=== PATIENT | female | born 1970 | race Caucasian/White ===

== ENCOUNTER 2017-07-17 21:15 | Inpatient (IN) | payer MEDICAID, OTHER ==
[~2017-07-17] VITALS: Ht 162.6 cm; Wt 68.0 kg
[2017-07-17] MEDS ORDERED: ONDANSETRON 2MG/ML, 2ML IVPush ONE (22:00)
[2017-07-17] MEDS ORDERED: SODIUM CHLORIDE 0.9% 1,000ML IVBOLUS ONE (22:00)
[2017-07-17 22:04] LABS: BASOPHILS # (AUTO) 0.05 x10^3/uL (0-0.1); BASOPHILS % (AUTO) 0 % (0-1); EOSINOPHILS # (AUTO) 0.25 x10^3/uL (0-0.4); EOSINOPHILS % (AUTO) 2 % (1-7); LYMPHOCYTES # (AUTO) 1.33 x10^3/uL (1-3.4); LYMPHOCYTES % (AUTO) 11 % (22-44); MD NO; MEAN CORPUSCULAR HEMOGLOBIN 29.9 pg (27.0-34.8); MEAN CORPUSCULAR HGB CONC 33.8 g/dL (32.4-35.8); MEAN CORPUSCULAR VOLUME 88.4 fL (80-100); MEAN PLATELET VOLUME 9.4 fL (7.4-10.4); MONOCYTES # (AUTO) 0.68 x10^3/uL (0.2-0.8); MONOCYTES % (AUTO) 6 % (2-9); NEUTROPHILS # (AUTO) 9.64 x10^3/uL (1.8-6.8); NEUTROPHILS % (AUTO) 81 % (42-75); PLATELET COUNT 181 x10^3/uL (130-400); RED BLOOD COUNT 4.57 x10^6/uL (3.82-5.3); RED CELL DISTRIBUTION WIDTH 13.1 % (9.6-15.2)
[2017-07-17] MEDS ORDERED: MORPHINE SULFATE 4 MG/ML, 1ML ONE ×2 (22:13→22:42)
[2017-07-17] MEDS ORDERED: ONDANSETRON 2MG/ML, 2ML ONE (22:13)
[2017-07-17] MEDS: MORPHINE SULFATE 4 MG/ML, 1ML IVPush PRN ×2 (22:14→22:43)
[2017-07-17 22:18] LABS: ALANINE AMINOTRANSFERASE 13 U/L (12-78); ALBUMIN 3.7 g/dL (3.4-5.0); ANION GAP 6 mmol/L (5-15); CHLORIDE 106 mmol/L (98-107); CREATININE 1.38 mg/dL (0.55-1.02)
[2017-07-17 22:22] LABS: ALKALINE PHOSPHATASE 76 U/L (45-117); BILIRUBIN,TOTAL 0.5 mg/dL (0.2-1.0); TOTAL PROTEIN 7.2 g/dL (6.4-8.2)
[2017-07-17] MEDS ORDERED: OMNIPAQUE 350 MG/ML, 100ML BOTTLE ONE (23:02)
[2017-07-17] MEDS ORDERED: SODIUM CHLORIDE 0.9% 1,000 ML IV ONE (23:48)
[2017-07-18] MEDS ORDERED: ONDANSETRON 2MG/ML, 2ML ONE (00:01)
[2017-07-18] MEDS ORDERED: HYDROmorphone 2 MG/ML, 1ML ONE ×4 (00:01→15:39)
[2017-07-18] MEDS: HYDROmorphone 1 MG/ML, 1ML IVPush PRN ×4 (00:10→15:41)
[2017-07-18] MEDS ORDERED: CIPROFLOXACIN/PMX 400MG/200ML 200 ML ONE ×2 (00:18→12:42)
[2017-07-18] MEDS: CIPROFLOXACIN/PMX 400MG/200ML 200 ML IV SCH ×2 (00:23→12:47)
[2017-07-18] MEDS ORDERED: morphine SULFATE 10 MG/ML, 1ML IVPush PRN (00:30)
[2017-07-18] MEDS ORDERED: ONDANSETRON 2MG/ML, 2ML IVPush PRN ×2 (00:30)
[2017-07-18] MEDS ORDERED: ACETAMINOPHEN 325 MG TABLET PO PRN (00:30)
[2017-07-18] MEDS ORDERED: METRONIDAZOLE PMX 500MG/100ML 100 ML ONE ×2 (02:25→10:48)
[2017-07-18] MEDS: METRONIDAZOLE PMX 500MG/100ML 100 ML IV SCH ×2 (02:29→11:04)
[2017-07-18 02:30] LABS: MICROSCOPIC NOT IND
[2017-07-18 02:34] LABS: CULTURE INDICATED? NO
[2017-07-18] MEDS ORDERED: SODIUM CHLORIDE 0.9% 1,000ML IVBOLUS ONE ×2 (03:00→03:30)
[2017-07-18] MEDS: SODIUM CHLORIDE 0.9% 1,000 ML IV SCH ×2 (04:18→17:02)
[2017-07-18 04:47] LABS: BASOPHILS # (AUTO) 0.02 x10^3/uL (0-0.1); BASOPHILS % (AUTO) 0 % (0-1); EOSINOPHILS # (AUTO) 0.14 x10^3/uL (0-0.4); EOSINOPHILS % (AUTO) 2 % (1-7); LYMPHOCYTES # (AUTO) 1.52 x10^3/uL (1-3.4); LYMPHOCYTES % (AUTO) 23 % (22-44); MD NO; MEAN CORPUSCULAR HGB CONC 33.3 g/dL (32.4-35.8); MEAN CORPUSCULAR VOLUME 90.2 fL (80-100); MEAN PLATELET VOLUME 9.2 fL (7.4-10.4); MONOCYTES # (AUTO) 0.37 x10^3/uL (0.2-0.8); MONOCYTES % (AUTO) 6 % (2-9); NEUTROPHILS # (AUTO) 4.63 x10^3/uL (1.8-6.8); NEUTROPHILS % (AUTO) 69 % (42-75); PLATELET COUNT 120 x10^3/uL (130-400); RED BLOOD COUNT 3.32 x10^6/uL (3.82-5.3); RED CELL DISTRIBUTION WIDTH 13.2 % (9.6-15.2)
[2017-07-18 04:54] LABS: CHLORIDE 116 mmol/L (98-107)
[2017-07-18 05:04] LABS: ALANINE AMINOTRANSFERASE 10 U/L (12-78); ALBUMIN 2.5 g/dL (3.4-5.0); ALKALINE PHOSPHATASE 49 U/L (45-117); ANION GAP 5 mmol/L (5-15); BILIRUBIN,TOTAL 0.5 mg/dL (0.2-1.0); TOTAL PROTEIN 4.9 g/dL (6.4-8.2)
[2017-07-18] MEDS ORDERED: GABA100C PO (06:42)
[2017-07-18] MEDS ORDERED: SERT100T PO (06:42)
[2017-07-18] MEDS ORDERED: TRAZ100T15 PO (06:42)
[2017-07-18] MEDS ORDERED: ESTR0.5T PO (07:50)
[2017-07-18] MEDS ORDERED: GABAPENTIN 100 MG CAPSULE PO SCH ×2 (09:00→21:00)
[2017-07-18] MEDS ORDERED: SERTRALINE 100MG TABLET PO SCH (09:00)
[2017-07-18] MEDS ORDERED: SUMA100T4 PO (11:13)
[2017-07-18] MEDS ORDERED: SUMATRIPTAN 100 MG TABLET PO PRN (14:00)
[2017-07-18] MEDS ORDERED: SUMATRIPTAN 6MG/0.5ML SQ ONE (14:07)
[2017-07-18 18:13] VITALS: BP 99/56
[2017-07-18 20:06] VITALS: BP 100/66
[2017-07-18] MEDS ORDERED: TRAZODONE 100MG TABLET PO SCH (21:00)
[2017-07-18] MEDS ORDERED: TRAZODONE 100MG TABLET PO PRN (21:00)
== END 2017-07-18 20:45 | disposition left against medical advice (07) | DRG 377 ==
LOC: ED 07-18 00:50 → EDIP 07-18 01:00 → 4NOR 07-18 18:04
PROVIDERS: ADMIT Internal Medicine; ATTEND Internal Medicine
DX: K62.5 Hemorrhage of anus and rectum (principal); N17.0 Acute kidney failure with tubular necrosis; D62 Acute posthemorrhagic anemia; K92.2 Gastrointestinal hemorrhage, unspecified; K52.9 Noninfective gastroenteritis and colitis, unspecified; E86.0 Dehydration; G43.909 Migraine, unspecified, not intractable, without status migrainosus; Z90.5 Acquired absence of kidney; Z90.710 Acquired absence of both cervix and uterus; E86.1 Hypovolemia; I95.9 Hypotension, unspecified
CPT/HCPCS: 36415; 74177; 80053; 81003; 83605; 83690; 84703; 85014; 85018; 85025; 86850; 86900; 93005; 96361; 96365; 96366; 96367; 96375; 96376; J0744; J1170; J2405; Q9967; J7030